=== PATIENT | female | born 1995 | race Caucasian/White ===

== ENCOUNTER → 2023-01-06 08:03 | Outpatient (BNVA) | payer OTHER, SELFPAY | PROVIDERS: PCP Physician Assistant; Visit Provider Nurse Practitioner Family ==

== ENCOUNTER → 2023-01-15 22:07 | Outpatient (REF) | payer OTHER, SELFPAY | LOC: HO.SL 22:07 | PROVIDERS: Visit Provider Nurse Practitioner Family | DX: G47.19 Other hypersomnia (principal); R06.81 Apnea, not elsewhere classified; R06.83 Snoring; G90.A Postural orthostatic tachycardia syndrome [POTS]; E66.01 Morbid (severe) obesity due to excess calories | CPT/HCPCS: 95810 ==

== ENCOUNTER 2023-03-20 08:03 | Outpatient (AMB) | payer OTHER, SELFPAY ==
--- NOTE | 2023-03-20 08:06 | MHC.OFFVIS ---
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 The PSG sleep study result was no evidence of sleep apnea or sleep related movement disorders in this study. Sleep architecture was remarkable for fragmented sleep for a efficiency of 59%, prolonged REM latency. Less than 5 hrs of sleep was recorded. Pt continues to endorse excessive daytime sleepiness and brain fog. She can sleep about 8 hrs at night but non refreshed in the morning. She was on Sunosi to treat ADHD but it is discontinued. She falls asleep in the middle of the day but it is not consistent. Pt also reports sudden muscle weakness with excited feeling. Denies hypnagogic hallucinations. 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 [facility] Surgical History (Updated 01/06/23 @ 08:16 by Delaney Martinez CMA) No pertinent past surgical history Family History (Updated 01/06/23 @ 08:17 by Delaney Martinez CMA) Father Heart disease Mother Heart disease Social History (Updated 03/20/23 @ 08:09 by Delnaey Martinez CMA) Alcohol intake: current Alcohol intake frequency: holidays/special occasions only Patient Tobacco Use Status: Never used Tobacco Substance Use Type: Marijuana Review of Systems Const All systems reviewed & are unremarkable except as noted in HPI and below ENT Reports Normal hearing present Neuro Reports Normal hearing present Physical Exam Vital Signs: Last Vital Signs Pulse 68 03/20/23 08:09 BP 110/68 03/20/23 08:09 Pulse Ox 97 03/20/23 08:09 Oxygen Delivery Method Room Air 03/20/23 08:09 Const General: cooperative Nutritional Appearance: obese Orientation/consciousness: patient oriented x3 Neck Neck: Yes normal visual inspection and Yes full ROM Resp Effort & Inspection: normal respiratory effort and able to speak in complete sentences Neuro General: patient oriented x3 Cranial nerves: Yes Bilaterally intact EOM present, Yes Normal facial strength present, Yes Midline tongue present, Yes Symmetric palate elevation present, Yes Normal hearing present, Yes Ability to bilaterally rotate head present and Yes Ability to bilaterally elevate shoulders present Cognition (Neuro): normal cognition Gait exam (Neuro): Normal gait present Motor exam (neuro): 5/5 motor strength present throughout, Pronator motor function not present and no tremor noted Psych Appearance: grossly normal Mental Status: mental status grossly normal Speech and movement: Normal speech and movement present Affect: normal affect Attitude: cooperative Assessment & Plan Assessment & Plan (1) Excessive daytime sleepiness: Code(s): G47.19 - Other hypersomnia (2) Snoring: Code(s): R06.83 - Snoring Plan Pt is advised to undergo MSLT sleep study to assess for narcolepsy. Will f/u with pt after study to discuss results and appropriate treatment options. Sleep hygiene education provided. Advised patient to try magnesium q HS. Will check labs for reversible causes of daytime tiredness and sleepiness. Pt to call with any worsening concerns or questions. Orders: Orders Vitamin B12 and Folate 03/21/23 E55.9 - Vitamin D deficiency, unspecified, R53.83 - Other fatigue TSH reflex Free T4 03/21/23 E55.9 - Vitamin D deficiency, unspecified, R53.83 - Other fatigue Vitamin D 25-OH (D2 and D3) 03/21/23 E55.9 - Vitamin D deficiency, unspecified, R53.83 - Other fatigue RT sleep testing - MSLT 03/20/23 G47.19 - Other hypersomnia Coding Level of Care Code Est Pt Level 3 (68060) Diagnoses Excessive daytime sleepiness G47.19 Snoring R06.83
[2023-03-20 08:09] VITALS: BP 110/68; PULSE 68; O2SAT 97
== END 2023-03-20 08:36 | disposition home or self-care (01) ==
PROVIDERS: PCP Physician Assistant; Visit Provider Nurse Practitioner Family
DX: G47.19 Other hypersomnia (principal); R06.83 Snoring
CPT/HCPCS: 99213

== ENCOUNTER → 2023-03-20 08:03 | Outpatient (BNVA) | payer OTHER, SELFPAY | PROVIDERS: PCP Physician Assistant; Visit Provider Nurse Practitioner Family | DX: R00.0 Tachycardia, unspecified (principal); G90.A Postural orthostatic tachycardia syndrome [POTS]; R06.83 Snoring; R06.81 Apnea, not elsewhere classified; G47.19 Other hypersomnia; E66.01 Morbid (severe) obesity due to excess calories ==

== ENCOUNTER 2023-03-21 09:38 | Outpatient (REF) | payer OTHER, SELFPAY ==
[2023-03-21 12:44] LABS: Folate 6.5 ng/mL (> or = 4.0); Vitamin B12 553 pg/mL (200-900)
[2023-03-21 12:59] LABS: TSH reflex Free T4 1.25 uIU/mL (0.32-4.0)
[2023-03-26 14:34] LABS: Vitamin D 25-OH, D2 <4 ng/mL; Vitamin D 25-OH, D3 25 ng/mL; Vitamin D 25-OH, Total 25 ng/mL (30-100)
== END 2023-03-21 09:39 | disposition home or self-care (01) ==
LOC: HO.LAB 09:38
PROVIDERS: PCP Physician Assistant; Visit Provider Nurse Practitioner Family
DX: E55.9 Vitamin D deficiency, unspecified (principal); R53.83 Other fatigue
CPT/HCPCS: 36415; 82306; 82607; 82746; 84443

== ENCOUNTER 2023-06-23 07:58 | Outpatient (AMB) | payer OTHER, SELFPAY ==
--- NOTE | 2023-06-23 08:04 | MHC.OFFVIS ---
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 The PSG sleep study result was no evidence of sleep apnea or sleep related movement disorders in this study. Sleep architecture was remarkable for fragmented sleep for a efficiency of 59%, prolonged REM latency. Less than 5 hrs of sleep was recorded. . MSLT scheduled in July She started Trintellix for depression, a month ago. She feels a little more energy during the daytime. However, she still get tired easily and sleepy. She can fall asleep around 7 pm if she does not take a nap. Magnesium helps for sleep sometimes. Pt's vitamin D level was low, 25 and started vitamin D supplement. She can sleep longer, but sleep quality is not great. Last night she woke up every hour. [facility] Surgical History No pertinent past surgical history Family History Father Heart disease Mother Heart disease Social History (Updated 06/23/23 @ 08:05 by Delaney Martinez CMA) Alcohol intake: current Alcohol intake frequency: holidays/special occasions only Patient Tobacco Use Status: Never used Tobacco Substance Use Type: Marijuana Questionnaire Short SAQLI Sleep Heart Health Study (Short SAQLI) How much of the time have you had to push yourself to remain alert during a typical day (e.g. work, school, childcare, housework)?: A moderate to large amount How often have you had to use all of your energy to accomplish your most important activity (e.g. work, school, childcare, housework)?: A moderate to large amount of the time How much difficulty have you had finding the energy to do other activities (e.g. exercise, relaxing activities)?: A large amount How much difficulty have you had fighting to stay awake?: A moderate amount How much of a problem has it been to be told that your snoring is irritating?: A small problem How much of a problem have frequent conflicts or arguments been?: A moderate problem How often have you looked for excuses for being tired?: A large amount of the time How often have you not wanted to do things with your family and/or friends: A large amount of the time How often have you felt depressed, down or hopeless?: A large amount of the time How often have you been impatient?: A moderate amount of the time How much of a problem has it been to cope with every day issues?: A moderate problem How much of a problem have you had with decreased energy?: A large problem How much of a problem have you had with fatigue?: A large problem How much of a problem have you have waking up feeling refreshed?: A large problem Total Score: 57 Review of Systems Const All systems reviewed & are unremarkable except as noted in HPI and below ENT Reports Normal hearing present Neuro Reports Normal hearing present Physical Exam Vital Signs: Last Vital Signs Pulse 66 06/23/23 08:05 BP 128/78 06/23/23 08:05 Pulse Ox 98 06/23/23 08:05 Oxygen Delivery Method Room Air 06/23/23 08:05 Const General: cooperative Nutritional Appearance: obese Orientation/consciousness: patient oriented x3 Neck Neck: Yes normal visual inspection and Yes full ROM Resp Effort & Inspection: normal respiratory effort and able to speak in complete sentences Neuro General: patient oriented x3 Cranial nerves: Yes Bilaterally intact EOM present, Yes Normal facial strength present, Yes Midline tongue present, Yes Symmetric palate elevation present, Yes Normal hearing present, Yes Ability to bilaterally rotate head present and Yes Ability to bilaterally elevate shoulders present Cognition (Neuro): normal cognition Gait exam (Neuro): Normal gait present Motor exam (neuro): 5/5 motor strength present throughout, Pronator motor function not present and no tremor noted Psych Appearance: grossly normal Mental Status: mental status grossly normal Speech and movement: Normal speech and movement present Affect: normal affect Attitude: cooperative Assessment & Plan Assessment & Plan (1) Excessive daytime sleepiness: Code(s): G47.19 - Other hypersomnia (2) Snoring: Code(s): R06.83 - Snoring Plan Pt is advised to undergo MSLT sleep study to assess for narcolepsy. Will f/u with pt after study to discuss results and appropriate treatment options. Sleep hygiene education provided. Advised patient to try magnesium q HS, vitamin D daily. Pt to call with any worsening concerns or questions. Coding Level of Care Code Est Pt Level 3 (29208) Diagnoses Excessive daytime sleepiness G47.19 Snoring R06.83
[2023-06-23 08:05] VITALS: BP 128/78; PULSE 66; O2SAT 98
== END 2023-06-23 08:30 | disposition home or self-care (01) ==
PROVIDERS: PCP Physician Assistant; Visit Provider Nurse Practitioner Family
DX: G47.19 Other hypersomnia (principal); R06.83 Snoring
CPT/HCPCS: 99213

== ENCOUNTER → 2023-06-23 07:58 | Outpatient (BNVA) | payer OTHER, SELFPAY | PROVIDERS: PCP Physician Assistant; Visit Provider Nurse Practitioner Family | DX: R00.0 Tachycardia, unspecified (principal); G90.A Postural orthostatic tachycardia syndrome [POTS]; R06.83 Snoring; R06.81 Apnea, not elsewhere classified; G47.19 Other hypersomnia; E66.01 Morbid (severe) obesity due to excess calories; R53.83 Other fatigue; E55.9 Vitamin D deficiency, unspecified ==

== ENCOUNTER 2023-09-23 08:26 | Outpatient (AMB) | payer OTHER, SELFPAY ==
--- NOTE | 2023-09-23 08:37 | A.OFFVIS_ITS ---
Intake Vital Signs 09/23/23 08:42 Height 5 ft 4 in Weight 249 lb 6 oz BMI 42.8 BP 130/60 Blood Pressure Location Lt brachial Position Sitting Pulse 67 Pulse Source Pulse Oximeter Pulse Oximetry (%) 99 Oxygen Delivery Method Room Air Intake Visit Reasons: 3 mo f/u - Sleep Disorder- CONF Intake Note: Patient presents for 3 month f/u. Allergies sulfa Allergy (Severe, Uncoded 06/23/23 08:04) rash HPI HPI Comments History of Present Illness Details 27 y/o female patient presents for follo w up of excessive daytime sleepiness. Pt underwent PSG and MSLT. The sleep study showed no evidence of significant sleep disordered breathing, frequent disruptive limb movement or other identified potential source of sleep disturbance. The average sleep latency of 15 min is within normal limits and not suggestive of significant daytime hypersomnolence. Absence of REM sleep from any naps make a more specific diagnosis of narcolepsy further unlikely. Vitmain D level was low, 25 and started taking supplement. Pt reports she was off Trintellix for MSLT test and resumed. Trintellix and vitmain D helps her to manage depression. She feels a little more energy during the daytime. However, she still get tired easily and sleepy in the morning, and having hard time to work. Magnesium helps her sleep better. Pt tried armodafinil in the past for sleepiness, but not sure why she stopped taking it. [facility] Surgical History No pertinent past surgical history Family History Father Heart disease Mother Heart disease Social History Alcohol intake: current Alcohol intake frequency: holidays/special occasions only Patient Tobacco Use Status: Never used Tobacco Substance Use Type: Marijuana Review of Systems Const All systems reviewed & are unremarkable except as noted in HPI and below ENT Reports Normal hearing present Neuro Reports Normal hearing present Physical Exam Vital Signs: Last Vital Signs Pulse 67 09/23/23 08:42 BP 130/60 09/23/23 08:42 Pulse Ox 99 09/23/23 08:42 Oxygen Delivery Method Room Air 09/23/23 08:42 BMI result Body Mass Index 42.8 Const General: cooperative Nutritional Appearance: obese Orientation/consciousness: patient oriented x3 Neck Neck: Yes normal visual inspection and Yes full ROM Resp Effort & Inspection: normal respiratory effort and able to speak in complete sentences Neuro General: patient oriented x3 Cranial nerves: Yes Bilaterally intact EOM present, Yes Normal facial strength present, Yes Midline tongue present, Yes Symmetric palate elevation present, Yes Normal hearing present, Yes Ability to bilaterally rotate head present and Yes Ability to bilaterally elevate shoulders present Cognition (Neuro): normal cognition Gait exam (Neuro): Normal gait present Motor exam (neuro): 5/5 motor strength present throughout, Pronator motor function not present and no tremor noted Psych Appearance: grossly normal Mental Status: mental status grossly normal Speech and movement: Normal speech and movement present Affect: normal affect Attitude: cooperative Assessment & Plan Assessment & Plan (1) Excessive daytime sleepiness: Code(s): G47.19 - Other hypersomnia Plan Continue to practice good sleep hygiene, magnesium 400 mg q HS, vitamin D daily. Will try armodafinil 150 mg q daily to manage daytime sleepiness. Pt to call with any worsening concerns or questions. Medications: New armodafinil 150 mg PO QAM 30 tabs 1RF 30 days Coding Level of Care Code Est Pt Level 3 (55064) Diagnoses Excessive daytime sleepiness G47.19
[2023-09-23 08:42] VITALS: BP 130/60; PULSE 67; O2SAT 99; BMI 42.8
== END 2023-09-23 08:56 | disposition home or self-care (01) ==
PROVIDERS: PCP Physician Assistant; Visit Provider Nurse Practitioner Family
DX: G47.19 Other hypersomnia (principal)
CPT/HCPCS: 99213

== ENCOUNTER → 2023-09-23 08:26 | Outpatient (BNVA) | payer OTHER, SELFPAY | PROVIDERS: PCP Physician Assistant; Visit Provider Nurse Practitioner Family ==

== ENCOUNTER 2023-11-19 07:49 | Outpatient (AMB) | payer OTHER, SELFPAY ==
--- NOTE | 2023-11-19 08:02 | A.OFFVIS_ITS ---
Vital Signs 11/19/23 08:10 Height 5 ft 4 in Weight 250 lb BMI 42.9 BP 122/60 Blood Pressure Location Lt brachial Position Sitting Pulse 74 Pulse Source Pulse Oximeter Pulse Oximetry (%) 100 Oxygen Delivery Method Room Air Intake Visit Reasons: follow up Sleep Disorder - CONF Intake Note: Patient presents for f/u. Stop armodafinil had side efffects. Pt. is getting labs from [facility] in [place] in a week or two. 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 Pt tried Armodafinil but had side effect, it made her depression worse. Pt reports her daytime sleepiness has slightly improved. Sleep schedule is from 9-10 to 5-7 am. \ She thinks that magnesium helped her staying sleep, however, she still has disrupted sleep due to chronic pain. Pain character is skin burning sensation, joint pain, achy and heaviness. She was seen by rheumatology, tried gabapentin, cymbalta, trileptal, amitriptyline, but not tolerated. She does exercise, walking daily and will start going to gym. She will have autonomic testing. Pt underwent PSG and MSLT. The sleep study showed no evidence of significant sleep disordered breathing, frequent disruptive limb movement or other identified potential source of sleep disturbance. The average sleep latency of 15 min is within normal limits and not suggestive of significant daytime hypersomnolence. Absence of REM sleep from any naps make a more specific diagnosis of narcolepsy further unlikely. [facility] Surgical History No pertinent past surgical history Family History Father Heart disease Mother Heart disease Social History Alcohol intake: current Alcohol intake frequency: holidays/special occasions only Patient Tobacco Use Status: Never used Tobacco Substance Use Type: Marijuana Review of Systems Const All systems reviewed & are unremarkable except as noted in HPI and below ENT Reports Normal hearing present Neuro Reports Normal hearing present Physical Exam Vital Signs: Last Vital Signs Pulse 74 11/19/23 08:10 BP 122/60 11/19/23 08:10 Pulse Ox 100 11/19/23 08:10 Oxygen Delivery Method Room Air 11/19/23 08:10 BMI result Body Mass Index 42.9 Const General: cooperative Nutritional Appearance: obese Orientation/consciousness: patient oriented x3 Neck Neck: Yes normal visual inspection and Yes full ROM Resp Effort & Inspection: normal respiratory effort and able to speak in complete sentences Neuro General: patient oriented x3 Cranial nerves: Yes Bilaterally intact EOM present, Yes Normal facial strength present, Yes Midline tongue present, Yes Symmetric palate elevation present, Yes Normal hearing present, Yes Ability to bilaterally rotate head present and Yes Ability to bilaterally elevate shoulders present Cognition (Neuro): normal cognition Gait exam (Neuro): Normal gait present Motor exam (neuro): 5/5 motor strength present throughout, Pronator motor function not present and no tremor noted Psych Appearance: grossly normal Mental Status: mental status grossly normal Speech and movement: Normal speech and movement present Affect: normal affect Attitude: cooperative Assessment & Plan Assessment & Plan (1) Excessive daytime sleepiness: Code(s): G47.19 - Other hypersomnia Category: Medical Plan Continue to practice good sleep hygiene, magnesium 400 mg q HS, vitamin D daily. Continue to follow up with patient services representative to manage her chronic pain. Pt to call with any worsening concerns or questions. Coding Level of Care Code Est Pt Level 3 (50757) Diagnoses Excessive daytime sleepiness G47.19
[2023-11-19 08:10] VITALS: BP 122/60; PULSE 74; O2SAT 100; BMI 42.9
== END 2023-11-19 08:34 | disposition home or self-care (01) ==
PROVIDERS: PCP Physician Assistant; Visit Provider Nurse Practitioner Family
DX: G47.19 Other hypersomnia (principal)
CPT/HCPCS: 99213

== ENCOUNTER → 2023-11-19 07:49 | Outpatient (BNVA) | payer OTHER, SELFPAY | PROVIDERS: PCP Physician Assistant; Visit Provider Nurse Practitioner Family ==